=== PATIENT | male | born 1960 | race Caucasian/White ===

== ENCOUNTER 2019-10-14 10:48 | Emergency (ER) | payer OTHER, SELFPAY ==
[2019-10-14] VITALS (8 sets, daily range): BP systolic 153–157; BP diastolic 78–85; PULSE 52–85; RESP 14–24; TEMP 36.1; O2SAT 90–100
[2019-10-14] MEDS: MECLIZINE HCL 12.5 MG TABLET 25 MG PO (11:26)
[2019-10-14] MEDS: SODIUM CHLORIDE 0.9% 1,000 ML 150 ML IV (11:28)
[2019-10-14 11:29] LABS: Add Manual Diff / Slide Review NO; Basophils Absolute Auto 100 /uL (0-100); Basophils Percent Auto 0.9 % (0-2); Eosinophils Absolute Auto 400 /uL (0-450); Eosinophils Percent Auto 4.8 % (2-4); Hematocrit 40.4 % (41-53); Hemoglobin 13.7 g/dL (13.5-17.5); Lymphocytes Absolute Auto 1900 /uL (1100-4500); Lymphocytes Percent Auto 25.1 % (25-40); Mean Corpuscular HGB Conc 34.1 % (30-36); Mean Corpuscular Hemoglobin 29.9 PG (26-34); Mean Corpuscular Volume 87.7 fL (80-100); Monocytes Absolute Auto 400 /uL (0-900); Monocytes Percent Auto 5.1 % (3-14); Neutrophils Absolute Auto 4800 /uL (1500-7000); Neutrophils Percent Auto 64.1 % (50-75); Platelet Count 229 X10^3/uL (150-400); Red Cell Distribution Width 13.5 % (11.6-14.8); White Blood Cell Count 7.5 X10^3/uL (4.5-11.0)
--- NOTE | 2019-10-14 11:39 | DI.CT.S_ITS ---
PROCEDURE: CT ANGIO HEAD AND NECK INDICATIONS: sudden onset of vertigo after neck and upper back adjustment TECHNIQUE: Pre-contrast 4.5 mm thick sections acquired from the foramen magnum to the vertex. After the administration of intravenous contrast, 1 mm thick sections acquired from the aortic arch through the [place]. Post-contrast 4.5 mm thick sections then re-acquired from the foramen magnum to the vertex. 3-dimensional flbhjoi-rhmlvpuja-vbeugkwllh (MIP) and/or volume rendering reformats were acquired of the central intracranial vasculature and neck separately. COMPARISON: None. FINDINGS: Image quality: Excellent. BRAIN: CSF spaces: Ventricles are normal in size and shape. Basal cisterns are patent. No extra-axial fluid collections. Brain: No midline shift. No intracranial bleeds or masses. [place]-white matter interface appears intact. Skull and face: Calvarium and facial bones appear intact, without suspicious lesions. Orbits appear normal. Sinuses: Sinuses and mastoids are clear. HEAD CT ANGIOGRAPHY: Anterior circulation: Intracranial internal carotid arteries are normal in size and flow. The flow within the paired anterior cerebral arteries is normal and symmetric. The flow within the middle cerebral arteries is normal and symmetric. The anterior communicating artery is seen. No aneurysms are seen. Posterior circulation: Visualized portions of the vertebral arteries demonstrate normal caliber, and join to form a normal appearing basilar artery. Flow within the posterior cerebral arteries is normal and symmetric. No aneurysms are seen. NECK CT ANGIOGRAPHY: Carotid system: The great vessels demonstrate a conventional anatomy as they arise from the aortic arch. The origins of the common carotid arteries appear patent. The common carotid arteries demonstrate normal caliber and courses. The bifurcation regions are both widely patent. The internal carotid arteries demonstrate normal calibers and courses. Posterior circulation: The origins of the vertebral arteries both appear widely patent. The more superior extracranial portions of both vertebral arteries also demonstrate normal courses and calibers. They join to form a normal appearing basilar artery. Soft tissues: Visualized neck soft tissues demonstrate no suspicious abnormalities. Bones: No suspicious bony lesions. Visualized cervical spine appears normally aligned. Focal degenerative changes seen at the C5-C6 level, where there are associated posteriorly directed endplate osteophytes, as on series 16, image 70. Moderate to severe loss of disc height is seen at this level. Milder degenerative changes are seen elsewhere. IMPRESSION: No acute intracranial process is seen. No findings of dissection can be seen. No hemodynamically significant stenosis can be seen. Focal C5-C6 degenerative change is seen, with posteriorly directed endplate osteophytes. Any quantitative measurements of stenosis were performed using NASCET criteria. Dictated by: Jeyson Phelps M.D. on 10/14/2019 at 11:34 Approved by: Jeyson Phelps M.D. on 10/14/2019 at 11:38
[2019-10-14 11:47] LABS: Alanine Aminotransferase 15 IU/L (<50); Albumin 4.4 g/dL (3.5-5.0); Albumin Globulin Ratio 1.8 (1.0-2.8); Alkaline Phosphatase 60 U/L (38-126); Aspartate Aminotransferase 28 IU/L (17-59); BUN Creatinine Ratio 19.2 (6-22); Bilirubin Total 1.1 mg/dL (0.2-1.3); Blood Urea Nitrogen 14 mg/dL (9-20); Calcium 9.9 mg/dL (8.4-10.2); Carbon Dioxide 28 mmol/L (22-32); Chloride 105 mmol/L (98-107); Estimated Glomerular Filt Rate > 60.0 mL/min (>60); Globulin 2.5 g/dL (1.7-4.1); Glucose 101 mg/dL (70-100); HEMOLYSIS < 15 (0-50); Potassium 3.8 mmol/L (3.4-5.1); Sodium 138 mmol/L (137-145); Total Protein 6.9 g/dL (6.3-8.2)
[2019-10-14 11:59] LABS: Troponin I < 0.012 ng/mL (0.01-0.034)
--- NOTE | 2019-10-14 12:02 | PC.NURSE ---
Patient reports vertigo symptoms have improved. Able to open eyes and lift head without vomiting.
--- NOTE | 2019-10-14 12:31 | ED_ITS ---
HPI - Dizziness <YA Delarosa - Last Filed: 10/14/19 23:07> General Chief Complaint: Dizziness Stated Complaint: Vertigo Time Seen by Provider: 10/14/19 11:08 Source: patient and EMS Mode of arrival: EMS Limitations: no limitations History of Present Illness HPI Narrative: This is a 58-year-old male, current vapor, who has history of vertigo presents to ED with acute spinning sensation like his riding a roller coaster. Patient reports he woke up this morning with vertigo-like symptoms. He had taken his blood pressure medication and meclizine and felt some improvement. Patient visited his chiropractor at [address] and he was in supine position flat on his back and head his neck and upper back adjusted. When his sats back up, he felt like losing balance. Patient denies speech difficulty, facial droops, weakness to his 1 side of body, dysphagia, headache, or vision change. Patient received Zofran and Phenergan before coming into ED by medics and states nausea has improved bit. Related Data Home Medications Medication Instructions Recorded Confirmed lisinopril mg PO DAILY 10/14/19 Allergies Allergy/AdvReac Type Severity Reaction Status Date / Time No Known Drug Allergies Allergy Verified 10/14/19 11:04 Review of Systems <YA Delarosa - Last Filed: 10/14/19 23:07> Review of Systems Narrative: General: Denies fever, chills, fatigue, malaise, sweats. HEENT: Denies sinus pain, ear pain, sore throat, difficulty swallowing, d izziness. Respiratory: Denies dyspnea, cough, wheezing, hemoptysis, sputum. Cardiovascular: Denies chest pain, palpitations, orthopnea, edema. Gastrointestinal: See HPI : Denies dysuria, frequency, incontinence, hematuria, urinary retention. Musculoskeletal: Denies weakness, joint pain or bony pain. Skin: Denies rash, skin lesions, or other. Neurologic: See HPI Psychiatric: No concerning psychosocial issues. 12-point review of systems is negative except for those stated above. Patient History <YA Delarosa - Last Filed: 10/14/19 23:07> Medical History Hypertension (Acute) Surgical History H/O knee surgery (Acute) Social History Smoking Status: Current every day smoker Smoking Status: Current every day smoker tobacco type: vaping alcohol intake frequency: a few times a month Substance Use Type: marijuana Exam <YA Delarosa - Last Filed: 10/14/19 23:07> Narrative Exam Narrative: GEN: Alert, oriented x 3, well appearing and nourished, and in no acute distress, keeps eyes closed due to dizziness. Head: Normal cephalic, atraumatic. No scalp or temporal tenderness, palpable mass or rash. EYES: Pupils are equal, round, and reactive to light and accommodation. Extraocular muscles are intact bilaterally. There is no subconjunctival hemorrhage, exudate and sclera non-icteric. ENT: Bilateral auditory canals and tympanic membranes clear. Hearing grossly intact. Nose without bleeding, purulent discharge, septal hematoma or deviation. Turbinate without erythema or swelling. Facial sinuses nontender to palpate. Mucous membrane moist, no mucosal lesion. Throat without erythema, tonsillar hypertrophy or exudate. Uvula in midline, airway patent. Neck: Trachea in midline. No JVD, non-tender without lymphadenopathy. No masses or thyroid megaly. Supple, non-tender and no meningeal signs. CARDIAC: Normal regular rate and rhythm without murmurs, gallops, or rubs. No chest wall tenderness. No peripheral edema, cyanosis or pallor. Capillary refi ll is less than 2 seconds. No carotid bruits. RESPIRATORY: Lungs are cleat to auscultate bilaterally. No cough, wheezes, rales, or rhonchi. No stridor, respiratory distress, increase work of breath ing, or accessary muscle used. ABD: Abdomen soft, nontender and non-distended. No guarding or rebound tenderness to palpate. Bowel sounds are normal in all 4 quadrants. There is no palpable masses or organomegaly. EXT: Full painless ROM of all extremities with no loss of sensation, strength, effusion or edema. SKIN: Warm, dry, normal color for patient. No erythema, lesions or rash. BACK: Nontender without deformity or crepitance. No flank tenderness. NEUROLOGICAL: Alert and oriented to place, time and person. No facial droops, dysphasia. CN II-XII intact. Strength and sensation symmetric and intact throughout. Cerebellar testing normal. PSYCHIATRIC: Good judgement and reason, without hallucinations, abnormal affect or abnormal behaviors during the examination. Patient is not suicidal. Initial Vital Signs Initial Vital Signs: Vital Signs Temperature 97 F L 10/14/19 10:58 Pulse Rate 56 L 10/14/19 10:58 Respiratory Rate 15 10/14/19 10:58 Blood Pressure 157/83 H 10/14/19 10:58 Pulse Oximetry 100 10/14/19 10:58 <An Ambrocio DO - Last Filed: 10/15/19 11:16> Initial Vital Signs Initial Vital Signs: Vital Signs Temperature 97 F L 10/14/19 10:58 Pulse Rate 56 L 10/14/19 10:58 Respiratory Rate 15 10/14/19 10:58 Blood Pressure 157/83 H 10/14/19 10:58 Pulse Oximetry 100 10/14/19 10:58 Scores <YA Delarosa - Last Filed: 10/14/19 23:07> GCS [place] coma scale eye opening: Spontaneous [place] coma scale verbal response: Orientated [place] coma scale motor response: Obey commands [place] coma scale total score: 15 NIH Stroke Scale Level of Conciousness: Alert, keenly responsive Ask month/age: Answers both questions correctly. Open/close eyes, close hand: Performs both tasks correctly Best gaze horizontal: Normal Visual deutsch: No visual loss Facial palsy: Normal symetrical movement Left arm drift: No drift for full 10 sec Right arm drift: No drift for full 10 sec Left leg drift: No drift for full 10 sec Right leg drift: No drift for full 10 sec Limb ataxia: Absent Sensory on face/arms/legs: Normal, no sensory loss Best language: No aphasia, normal Dysarthria: Normal Extinction or inattention: No abnormality Total NIH Stroke scale score: 0 Course <YA Delarosa - Last Filed: 10/14/19 23:07> Orders Ordered: Discontinued Medications Sodium Chloride (Normal Saline 0.9%) 1,000 mls @ 150 mls/hr IV CONT DAISHA Last Infusion: 10/14/19 12:57 Dose: 90 mls/hr Documented by: Admin: 10/14/19 11:28 Dose: 150 mls/hr Documented by: ROSALINO Meclizine HCl (Antivert) 25 mg PO NOW ONE Stop: 10/14/19 11:08 Last Admin: 10/14/19 11:26 Dose: 25 mg Documented by: ROSALINO Reevaluation(s) Reevaluation #1: Patient reports improved dizziness/vertigo sensation and nausea upon returning from CT Time: 12:25 Vital Signs Vital signs: Vital Signs - 8 hr 10/14/19 10:58 10/14/19 10:59 10/14/19 11:00 Temperature 97 F L Pulse Rate 56 L 55 L 55 L Respiratory Rate 15 15 24 Blood Pressure 157/83 H 157/83 H Pulse Oximetry 100 100 100 10/14/19 11:30 10/14/19 11:45 10/14/19 11:46 Temperature Pulse Rate 55 L 52 L 64 Respiratory Rate 14 21 18 Blood Pressure 155/85 H 155/85 H Pulse Oximetry 99 99 98 10/14/19 12:16 Temperature Pulse Rate 60 Respiratory Rate 15 Blood Pressure 157/78 H Pulse Oximetry 100 <An Ambrocio, - Last Filed: 10/15/19 11:16> Orders Ordered: Discontinued Medications Sodium Chloride (Normal Saline 0.9%) 1,000 mls @ 150 mls/hr IV CONT DAISHA Last Infusion: 10/14/19 12:57 Dose: 90 mls/hr Documented by: Admin: 10/14/19 11:28 Dose: 150 mls/hr Documented by: ROSALINO Meclizine HCl (Antivert) 25 mg PO NOW ONE Stop: 10/14/19 11:08 Last Admin: 10/14/19 11:26 Dose: 25 mg Documented by: ROSALINO Vital Signs Vital signs: Vital Signs - 8 hr 10/14/19 10:58 10/14/19 10:59 10/14/19 11:00 Temperature 97 F L Pulse Rate 56 L 55 L 55 L Respiratory Rate 15 15 24 Blood Pressure 157/83 H 157/83 H Pulse Oximetry 100 100 100 10/14/19 11:30 10/14/19 11:45 10/14/19 11:46 Temperature Pulse Rate 55 L 52 L 64 Respiratory Rate 14 21 18 Blood Pressure 155/85 H 155/85 H Pulse Oximetry 99 99 98 10/14/19 12:16 Temperature Pulse Rate 60 Respiratory Rate 15 Blood Pressure 157/78 H Pulse Oximetry 100 MDM - Dizziness <Wu YA Gaspar - Last Filed: 10/14/19 23:07> Differential Diagnosis Differential diagnosis: Likely benign paroxysmal positional vertigo, vertebral basilar insufficiency, cerebrovascular accident, transient cerebral ischemia and other (dissection of vertebral artery/carotid artery) Medical Records Attestation: I reviewed the patient's medical records. Lab Data Attestation: I reviewed the patient's lab results. Result diagrams: 10/14/19 11:25 10/14/19 11:25 Labs: Lab Results 10/14/19 10/14/19 Range/Units 11:25 11:25 WBC 7.5 (4.5-11.0) X10^3/uL RBC 4.60 (4.5-5.9) X10^6/uL Hgb 13.7 (13.5-17.5) g/dL Hct 40.4 L (41-53) % MCV 87.7 (80-100) fL MCH 29.9 (26-34) PG MCHC 34.1 (30-36) % RDW 13.5 (11.6-14.8) % Plt Count 229 (150-400) X10^3/uL Neut % (Auto) 64.1 (50-75) % Lymph % (Auto) 25.1 (25-40) % [place] % (Auto) 5.1 (3-14) % Eos % (Auto) 4.8 H (2-4) % Baso % (Auto) 0.9 (0-2) % Neut # (Auto) 4800 (1549-2406) /uL Lymph # (Auto) 1900 (7839-1178) /uL [place] # (Auto) 400 (0-900) /uL Eos # (Auto) 400 (0-450) /uL Baso # (Auto) 100 (0-100) /uL Sodium 138 (137-145) mmol/L Potassium 3.8 (3.4-5.1) mmol/L Chloride 105 (98-107) mmol/L Carbon Dioxide 28 (22-32) mmol/L BUN 14 (9-20) mg/dL Creatinine 0.73 (0.66-1.25) mg/dL Estimated GFR > 60.0 (>60) mL/min BUN/Creatinine Ratio 19.2 (6-22) Glucose 101 H (70-100) mg/dL Calcium 9.9 (8.4-10.2) mg/dL Total Bilirubin 1.1 (0.2-1.3) mg/dL AST 28 (17-59) IU/L ALT 15 (<50) IU/L Alkaline Phosphatase 60 (38-126) U/L Troponin I < 0.012 (0.01-0.034) ng/mL Total Protein 6.9 (6.3-8.2) g/dL Albumin 4.4 (3.5-5.0) g/dL Globulin 2.5 (1.7-4.1) g/dL Albumin/Globulin Ratio 1.8 (1.0-2.8) Imaging Data CTA-Head and neck: Radiologist's Impression: [address] [address] [address] Scan Report Signed Patient: Armando Foster#: [id number] : 2Acct:[id number] Age/Sex: 58 / MDate of Service: 10/14/19 Loc: ED Accession Number: [id number] Procedure: CT angio head and neck Ordering Provider: Wu Gaspar PROCEDURE: CT ANGIO HEAD AND NECK INDICATIONS: sudden onset of vertigo after neck and upper back adjustment TECHNIQUE: Pre-contrast 4.5 mm thick sections acquired from the foramen magnum to the vertex. After the administration of intravenous contrast, 1 mm thick sections acquired from the aortic arch through the [place]. Post-contrast 4.5 mm thick sections then re- acquired from the foramen magnum to the vertex. 3-dimensional m pbywtr-wvlgppeqd-rqnyndfalr (MIP) and/or volume rendering reformats were acquired of the central intracranial vasculature and neck separately. COMPARISON: None. FINDINGS: Image quality: Excellent. BRAIN: CSF spaces: Ventricles are normal in size and shape. Basal cisterns are patent. No extra-axial fluid collections. Brain: No midline shift. No intracranial bleeds or masses. [place]-white matter interface appears intact. Skull and face: Calvarium and facial bones appear intact, without suspicious lesions. Orbits appear normal. Sinuses: Sinuses and mastoids are clear. HEAD CT ANGIOGRAPHY: Anterior circulation: Intracranial internal carotid arteries are normal in size and flow. The flow within the paired anterior cerebral arteries is normal and symmetric. The flow within the middle cerebral arteries is normal and symmetric. The anterior communicating artery is seen. No aneurysms are seen. Posterior circulation: Visualized portions of the vertebral arteries demonstrate normal caliber, and join to form a normal appearing basilar artery. Flow within the posterior cerebral arteries is normal and symmetric. No aneurysms are seen. NECK CT ANGIOGRAPHY: Carotid system: The great vessels demonstrate a conventional anatomy as they arise from the aortic arch. The origins of the common carotid arteries appear patent. The common carotid arteries demonstrate normal caliber and courses. The bifurcation regions are both widely patent. The internal carotid arteries demonstrate normal calibers and courses. Posterior circulation: The origins of the vertebral arteries both appear widely patent. The more superior extracranial portions of both vertebral arteries also demonstrate normal courses and calibers. They join to form a normal appearing basilar artery. Soft tissues: Visualized neck soft tissues demonstrate no suspicious abnorm alities. Bones: No suspicious bony lesions. Visualized cervical spine appears normally aligned. Focal degenerative changes seen at the C5-C6 level, where there are associated posteriorly directed endplate osteophytes, as on series 16, image 70. Moderate to severe loss of disc height is seen at this level. Milder degenerative changes are seen elsewhere. IMPRESSION: No acute intracranial process is seen. No findings of dissection can be seen. No hemodynamically significant stenosis can be seen. Focal C5-C6 degenerative change is seen, with posteriorly directed endplate o steophytes. Any quantitative measurements of stenosis were performed using NASCET criteria. Dictated by: Jeyson Phepls M.D. on 10/14/2019 at 11:34 Approved by: Jeyson Phelps M.D. on 10/14/2019 at 11:38 ECG Data Attestation: I personally reviewed and interpreted this ECG as follows: Prior ECG tracings: not available for review Interpretation: Sinus bradycardia rate at 56 with premature supraventricular complexes. Normal [place]. IA interval 136, QRS duration 92, QT/QTC 458/441. No acute ST changes MDM Narrative Medical decision making narrative: This is a 58 year male to ED with sudden onset of worsening vertigo after he had his neck and upper back adjusted at chiropractor this morning after he was woken up with his usual vertigo symptoms. Patient described as he fell spinning sensation as he was riding a roller coaster with nausea and vomiting without other obvious neurological deficit. Fast exam was negative. Patient received IV Zofran, Phenergan, gentle IV hydration infusion with meclizine. Given the patient just had his neck and upper back manipulated, had CTA of neck and head to rule out carotid and vertebral artery dissection. The result was negative for acute intracranial process or dissections. There was no significant stenosis seen. There is focal C5 and C6 degenerative changes with posteriorly directed endplate osteophytes. CBC, CMP and cardiac enzymes were unremarkable. Patient reports his symptoms much improved after the medications treatment and he was able to ambulate in stable gait to bathroom and back to his bed. Findings were discussed with patient and informed his symptoms are likely due to vertigo. Patient advised to follow up with PCP and return precautions were discussed with patient and patient verbalized understanding and agreement with treatment plan. <An Ambrocio, DO - Last Filed: 10/15/19 11:16> Lab Data Labs: Lab Results 10/14/19 10/14/19 Range/Units 11:25 11:25 WBC 7.5 (4.5-11.0) X10^3/uL RBC 4.60 (4.5-5.9) X10^6/uL Hgb 13.7 (13.5-17.5) g/dL Hct 40.4 L (41-53) % MCV 87.7 (80-100) fL MCH 29.9 (26-34) PG MCHC 34.1 (30-36) % RDW 13.5 (11.6-14.8) % Plt Count 229 (150-400) X10^3/uL Neut % (Auto) 64.1 (50-75) % Lymph % (Auto) 25.1 (25-40) % [place] % (Auto) 5.1 (3-14) % Eos % (Auto) 4.8 H (2-4) % Baso % (Auto) 0.9 (0-2) % Neut # (Auto) 4800 (4669-8867) /uL Lymph # (Auto) 1900 (4201-9161) /uL [place] # (Auto) 400 (0-900) /uL Eos # (Auto) 400 (0-450) /uL Baso # (Auto) 100 (0-100) /uL Sodium 138 (137-145) mmol/L Potassium 3.8 (3.4-5.1) mmol/L Chloride 105 (98-107) mmol/L Carbon Dioxide 28 (22-32) mmol/L BUN 14 (9-20) mg/dL Creatinine 0.73 (0.66-1.25) mg/dL Estimated GFR > 60.0 (>60) mL/min BUN/Creatinine Ratio 19.2 (6-22) Glucose 101 H (70-100) mg/dL Calcium 9.9 (8.4-10.2) mg/dL Total Bilirubin 1.1 (0.2-1.3) mg/dL AST 28 (17-59) IU/L ALT 15 (<50) IU/L Alkaline Phosphatase 60 (38-126) U/L Troponin I < 0.012 (0.01-0.034) ng/mL Total Protein 6.9 (6.3-8.2) g/dL Albumin 4.4 (3.5-5.0) g/dL Globulin 2.5 (1.7-4.1) g/dL Albumin/Globulin Ratio 1.8 (1.0-2.8) Discharge Plan Departure Patient Disposition: Home Clinical Impression: Vertigo Discharge Date/Time: 10/14/19 13:10 Instructions: DI for Vertigo Activity Restrictions/Additional Instructions: You have been diagnosed with [vertigo. Lab test, EKG and CT a of your neck and head were unremarkable. Your symptoms improved while in ED with the medications.]. What to do: *Take your medications as directed. *Follow up with your primary care provider in 2-3 days, call for an appointment. Let them know you were seen in the ED and that we asked you to be seen in follow up. *Return to ED if you have any new, worsening, or concerning symptoms, such as [chest pain, breathing difficulty, unable to tolerate fluids, facial droops, speech difficulty, weakness to 1 side of body, vision change, severe headache or any acute concerns]. Prescriptions: No Action lisinopril 20 mg Tablet PO DAILY RF: 0 Referrals: [facility] [Outside] <An Ambrocio DO - Last Filed: 10/15/19 11:16> Cosign ED Attending Anneature Attestation: I was immediately available in the department for consultation. Documentation has been reviewed. I agree with assessment and plan.
== END 2019-10-14 13:10 | disposition home or self-care (01) ==
PROVIDERS: Emergency Medicine; Emergency Provider Nurse Practitioner Family
DX: R42 Dizziness and giddiness (principal); I10 Essential (primary) hypertension; R11.0 Nausea
CPT/HCPCS: 36415; 70496; 70498; 80053; 84484; 85025; 93005; 96360; 99284; Q9967

== ENCOUNTER → 2020-05-23 09:03 | Outpatient (CLI) | payer OTHER, SELFPAY ==
[2020-05-23 11:34] LABS: COVID19 -Nasal RAPID Negative (Negative)
== END ==
PROVIDERS: PCP Family Medicine; Visit Provider Nurse Practitioner
DX: Z20.822 Contact with and (suspected) exposure to COVID-19 (principal)
CPT/HCPCS: 87635

== ENCOUNTER 2020-05-25 09:36 | Inpatient (IN) | payer OTHER, SELFPAY ==
[2020-05-12 09:56] VITALS: BMI 28.0
[2020-05-25] VITALS (16 sets, daily range): BP systolic 127–170; BP diastolic 65–109; PULSE 69–91; RESP 9–97; TEMP 36.3–37.3; O2SAT 9–98; BMI 28.0
--- NOTE | 2020-05-25 | DI.RAD.S_ITS ---
PROCEDURE: XR CERVICAL SPINE 2V OR 3V INDICATIONS: C5-6-7 ACDF TECHNIQUE: 2 view(s) of the cervical spine were acquired. COMPARISON: None. FINDINGS: Intraoperative fluoroscopic images of cervical spine shows anterior fusion at C5 through C7 levels with intervertebral spacer placement. IMPRESSION: Fluoro guidance was provided intraoperatively for anterior fusion at C5 through C7 levels. Dictated by: Eh Allne M.D. on 05/25/2020 at 16:57 Approved by: Eh Allen M.D. on 05/25/2020 at 16:58
[2020-05-25] MEDS: LACTATED RINGERS 1,000 ML 42 ML IV ×2 (10:16→13:30)
--- NOTE | 2020-05-25 10:54 | PM.PREOP ---
Pre-operative Note COVID-19 COVID-19 status: Negative Result date/Date tested (Pos, Neg/Pending): 05/23/20 Interval Note History & Physical reviewed/Exam performed by Physician: Yes Changes to H&P: No
[2020-05-25] MEDS: CEFAZOLIN 2 GM/100 ML FROZ.PIGGY IV ×2 (11:23→19:40)
--- NOTE | 2020-05-25 12:03 | SUR.OPER ---
Supine, head on gel donut. Arms padded with gel pads, tucked at sides, towel roll under shoulders. Safety belt at thigh. Legs uncrossed.
--- NOTE | 2020-05-25 13:39 | PM.OP.1 ---
Operative Date/Time/Diagnoses Date of procedure: 05/25/20 Time of procedure: 11:39 Pre-op diagnosis: 1. C5-6, C6-7 spinal stenosis 2. C5-6, C6-7 spondylosis with radiculopathy Post-op diagnosis: same Procedure & Clinicians Procedure: 1. C5-6 C6-7 anterior cervical diskectomy and fusion 2. C5-6 C6-7 anterior interbody cage placement 3. C5-6 C6-7 anterior instrumentation with plate and screw placement in C5-C6 and C7 vertebrae 4. Utilization of microsurgical technique and operating microscope Same procedure as scheduled: Yes Indications: Patient has been having chronic neck pain and worsening cervical radiculopathy. Patient failed multiple conservative management with worsening pain weakness and numbness in her upper extremity. Patient has been having difficulty performing activity of daily living. After discussing risks benefits of treatment options, patient elected proceed with surgery. Surgeon: Denton Hernandez Ditch Tender: Adenike Hobson'Brien Click Yes if Unassisted: No Anesthesia Type: General Operative Notes Closure Type: primary Specimen(s): none sent Prosthetic devices, grafts, tissues, transplants, or devices: Globus Extend plate, PEEK cages Estimated Blood Loss (mL): 10 Blood products transfused: none Procedure in detail: Patient was seen in the preoperative area. Risks and benefits of the surgery was discussed with the patient. Operative consent was obtained and placed in the chart. Patient was then taken to the operative room. Prophylactic antibiotic was given less than 0.5 hr prior to skin incision. General anesthesia was administered. Patient was placed into a supine position on her radiolucent table. Bilateral shoulders were taped down to allow proper C-arm imaging. Anterior cervical area was prepped and draped in a sterile fashion. Time-out was performed at this time. Using lateral C-arm imaging, the level between C5 and C7 was identified and marked on patient's neck. A oblique incision from midline towards medial border of sternocleidomastoid muscle was made. The platysma muscle was incised in line with skin incision. Metzenbaum scissor was used to develop the plane between the medial border of sternocleidomastoid d and the strap muscles medially. The carotid sheath and its contents were identified and protected behind the hand-held retractor during the entire case. The plane between the carotid sheath and strap muscles was developed with Metzenbaum scissors. Dissection was made down to the level of the anterior cervical fascia. Longus colli muscle was incised on the anterior aspect of vertebral bodies bilaterally from C5-C7. Spinal needle was placed into the C5-6 disc space and confirmed with lateral C-arm imaging. Using microsurgical technique and operative microscope, anterior cervical diskectomy was performed at C5-6 and C6-7 level. This was done by removing the disc material, removing the anterior and posterior osteophytes posterior longitudinal ligaments along with performing bilateral foraminotomies at both levels. Patient was found to have severe central and foraminal stenosis at both levels. Patient's stenosis was fully decompressed after decompression was completed. After the diskectomy was completed, 2 anterior interbody cages were obtained. The cages were packed with DBM bone grafting material. One cage each along with the bone grafting material was then packed into the interbody spaces from C5-C7 with one cage into each interbody level. After the cages were placed, the anterior cervical plate was stabilized to the C5-C7 vertebrae using 2 screws at each each level. Total 6 screws were placed. After confirming placement of the hardware with AP and lateral C-arm imaging, the screws were locked into the plate using the locking mechanism and torque limiting screwdriver. After the hardware was placed and confirmed with AP and lateral C-arm imaging, the wound was irrigated with sterile normal saline. The platysma muscle and the subcutaneous tissue was closed with 2-0 Vicryl. The skin was closed with 4-0 Monocryl and Steri-Strips. Patient tolerated the procedure well. Patient was transferred recovery room in stable condition. There were no complications. Complications: none Post-operative Condition: stable Disposition: PACU Plan for aftercare: Admit to inpatient hospital
[2020-05-25] MEDS: hydrOXYzine 50 MG/ML INJ 25 MG IM (14:57)
[2020-05-25] MEDS: OXYCODONE IR 5 MG TABLET PO (15:15)
[2020-05-25] MEDS: ACETAMINOPHEN 325 MG TABLET 650 MG PO (15:15)
[2020-05-25] MEDS: SODIUM CHLORIDE 0.9% 1,000 ML 100 ML IV (16:37)
[2020-05-25] MEDS: SENNOSIDES 8.6 MG TABLET 17.2 MG PO (21:04)
[2020-05-25] MEDS: DOCUSATE 100 MG CAPSULE PO (21:04)
[2020-05-25] MEDS: hydrOXYzine pamoate 25 MG CAPSULE PO (21:09)
[2020-05-25] MEDS: OXYCODONE IR 5 MG TABLET 10 MG PO (21:09)
[2020-05-26] MEDS: OXYCODONE IR 5 MG TABLET 10 MG PO ×3 (00:10→11:52)
--- NOTE | 2020-05-26 01:44 | PC.NURSE ---
2351: alert and oriented. Breath sounds CTA with RA sat of 96%. HRR. BP elevated at 141/96. Denies nausea. BT present and states he is passing flatus. Denies dysuria, frequency or urgency with urination. Moving self in bed and SBA when up to bathroom. Dressing to neck is CDI. Soft collar removed at shift change per patient. Complained of 7/10 neck pain and was medicated with oxycodone and is currently asleep. Has ice to posterior neck. Has sore throat so hurts to swallow but denies difficulty swallowing. Wearing bilateral foot SCD's. Fall risk score is low.
[2020-05-26] MEDS: CEFAZOLIN 2 GM/100 ML FROZ.PIGGY IV (02:26)
[2020-05-26] MEDS: SODIUM CHLORIDE 0.9% 1,000 ML 100 ML IV (02:26)
[2020-05-26 06:00] VITALS: BP 136/75; PULSE 78; RESP 18; TEMP 36.9; O2SAT 98
[2020-05-26 08:27] VITALS: BP 149/93; PULSE 83; RESP 18; TEMP 36.4; O2SAT 97
[2020-05-26] MEDS: DOCUSATE 100 MG CAPSULE PO (08:44)
[2020-05-26] MEDS: lisinopriL 20 MG TABLET 40 MG PO (08:44)
[2020-05-26] MEDS: hydroCHLOROthiazide 25 MG TABLET PO (08:44)
--- NOTE | 2020-05-26 09:10 | PT.IIE ---
Current Diagnoses Other spondylosis with radiculopathy, cervical region (05/25/20) Spinal stenosis, cervical region (05/25/20) Surgery Performed Operation Date: 05/25/20 11:15 Actual Procedures p C5-6, C6-7 ACDF with anterior instrumentation - Denton Hernandez MD Surgical History (Last Updated 05/12/20 @ 10:04 by Sara Gómez, RN) H/O knee surgery Status post LASIK surgery of both eyes Medical History (Last Updated 05/12/20 @ 10:00 by Sara Gómez, RN) Hypertension Vertigo Physical Therapy Inpatient Evaluation/Re-Eval M1 PT/OT-IP Prior Functional Status Start: 05/26/20 10:44 Freq: NEEDED Status: Active Protocol: Document 05/26/20 09:10 AB (Rec: 05/26/20 10:55 AB [email or web address]) Medical Review Prior Functional Status Medical History Reviewed Yes Communication able to make needs known Mobility and Gait pt stated that he is independent with all mobilities and ambulation wtihout AD Social History Household Members none Living Arrangements Mobile home Number of Floors (Floors) One Floor Number of Stairs To Enter/Railing? 3 steps L rail to enter Home Environment Standard Height Toilet Home Equipment Hand Held Shower Employment Status Retired Additional Social History Comment stated that his friend will stay with him for 1-2 days to assist him M2 PT-IP Current Condition Start: 05/26/20 10:44 Freq: NEEDED Status: Active Protocol: Document 05/26/20 09:10 AB (Rec: 05/26/20 10:55 AB [email or web address]) Physical Therapy Current Condition Current Condition Evaluation Date 05/26/20 Treatment Diagnosis s/p C5-6, C6-7 ACDF; difficulty in walking Onset Date 05/25/20 Precautions Cervical Spine Precautions Soft Collar for Comfort,No Heavy Lifting,Log Roll M3 PT-IP Subjective Start: 05/26/20 10:44 Freq: NEEDED Status: Active Protocol: Document 05/26/20 09:10 AB (Rec: 05/26/20 10:55 AB [email or web address]) Subjective Physical Therapy Visit Type Type Initial Evaluation Visit Start Time 09:10 Visit Stop Time 09:32 Total Visit Minutes 22 Number of BARREL HEADER Visits 0 Physical Therapy Visit Comments Patient Comments agreeable to do PT Therapy Pain Assessment Pain When Pain Assessed At Rest Pain Present Pain Present Pain Reported Location Neck Scale Used pain scale not stated Pain Management Techniques Timing of Activity with Medications M4 PT-IP Mobility and Gait Start: 05/26/20 10:44 Freq: NEEDED Status: Active Protocol: Document 05/26/20 09:10 AB (Rec: 05/26/20 10:55 AB [id number]) PT-Bed Mobility Assessment Rolling Type of Rolling Log Rolling Level of Assist Standby Assistance Supine to Sit Supine to Sit Standby Assistance Sit to Supine Sit to Supine Standby Assistance PT-Transfer Assessment Sit to and From Stand Sit to and from Stand Standby Assistance,Use of Upper Extremities Equipment Transfer Assistive Device None Orthotic/Prosthetic Devices or Brace: Yes Transfers Transfer Destination Toilet Transfer Technique ambulated without AD Transfer Ability Level of Assist Standby Assistance Comments Mobility Comments reviewed cervical precautions and log roll bed mobility. pt stated that he has to use the toilet first and completed supine to sit HOB elevated SBA . ambulated to the toilet without AD SBA and was able to ambulate to sink and back to bed without AD SBA. educated pt on cervical precautions and log roll bed mobility. completed log roll supine <> sit x 4 reps requiring SBA and initial cues but able to complete without cues after 2 reps. pt ambulated in the hallway without AD SBA. completed up/ down 3 steps using L rail SBA. pt ambulated back to bed. requested to go back to bed and completed sit to supine SBA. positioned in bed. call light and table placed within reach. Gait Assessment Gait Gait Assistance Required: Standby Assistance Distance (Feet) 150 Assistive Devices Assistive Device None Orthotic/Prosthetic Devices or Brace: Yes Factors Limiting Gait Function Factors Limiting Gait Function Limited Range of Motion,Pain, Poor Balance Comments Gait Comments pls refer to mobility section for details Stair Climbing Assessment Evaluation Level of Assist On Stairs Standby Assistance Devices Stair Climbing Assistive Devices Left Railing Technique/Endurance Stair Climbing Direction Ascend and Descend Stair Climbing Technique Step to Step Number of Steps Climbed 3 Query Text: Stair Climbing Set # Repetitions (reps) 1 PT-Balance Assessment Sitting Balance and Reactions Static Sitting Balance Ability Normal Dynamic Sitting Balance Ability Normal Standing Balance and Reactions Static Standing Balance Ability Good Dynamic Standing Balance Ability Good Device Used without AD M5 PT-IP Objective Assessments Start: 05/26/20 10:44 Freq: NEEDED Status: Active Protocol: Document 05/26/20 09:10 AB (Rec: 05/26/20 10:55 AB [id number]) Orientation Orientation/Cognition Level of Alertness Alert Orientation Name,Age,Birthday,Month,Date, Year,Day of Week,Place, Situation Language Function Ability No Deficits Noted Safety Awareness Understands Safety Issues Memory Description No Deficits Noted Gross Range of Motion Lower Extremity ROM Assessment Within Functional Limits Strength Lower Extremity Strength Assessment Within Functional Limits Coordination Assessment Gross Coordination Gross Coordination WNL Sensation Assessment Sensation Gross Sensation WNL Muscle Tone Muscle Tone WNL Yes M6 PT-IP Treatment Start: 05/26/20 10:44 Freq: NEEDED Status: Active Protocol: Document 05/26/20 09:10 AB (Rec: 05/26/20 10:55 AB [id number]) Physical Therapy Treatment Education Education Provided Precautions,Weight Bearing Status,Post-Op Packet,Safety Brace Education Donning,Bear Dance,Patient Other Treatments Other Treatment Performed educated on soft collar management and pt was able to complete without assistance M7 PT-IP Assessment and Plan Start: 05/26/20 10:44 Freq: NEEDED Status: Active Protocol: Document 05/26/20 09:10 AB (Rec: 05/26/20 10:55 AB [id number]) PT Summary Assessment and Plan Potential Rehabilitation Potential Good Status of Condition at Evaluation Stable Summary Impairments Pain,ROM,Strength,Balance,Bed Mobility,Transfers,Gait, Activity Tolerance Assessment Summary pt requiring SBA with mobility and able to ambulate without AD. pt plans to go home and a friend will assist him for 1- 2 days. pt may go home when medically stable. Goals Bed Mobility Goal Independent Transfer Goal Independent Gait Goal Independent Gait Distance 300 Other Goals upd/won 3 steps L rail independent Days to Meet Goals 3 Frequency of Treatment Frequency Of Treatment Twice a Day Treatment Plan Physical Therapy Treatment Plan Bed Mobility Training,Transfer Training,Gait Training, Therapeutic Exercise,Balance Retraining,Post Op Education, Discharge Planning,Hot or Cold Pack,Neuromuscular Re-ed, Coordination Retraining,Manual Therapy Precautions Cervical Spine Precautions Soft Collar for Comfort,No Heavy Lifting,Log Roll Recommendations To Nursing Amount of Assist Needed Standby Assistance Discharge Recommendations PT Discharge Recommendations Home with Assistance Transportation Needs at Discharge Private Vehicle
--- NOTE | 2020-05-26 10:08 | OT.IP.EVAL ---
Current Diagnoses Other spondylosis with radiculopathy, cervical region (05/25/20) Spinal stenosis, cervical region (05/25/20) Surgery Performed Operation Date: 05/25/20 11:15 Actual Procedures p C5-6, C6-7 ACDF with anterior instrumentation - Denton Hernandez MD Past Medical History (Last Updated 05/12/20 @ 10:00 by Sara Gómez, RN) Hypertension Vertigo Surgical History (Last Updated 05/12/20 @ 10:04 by Sara Gómez, RN) H/O knee surgery Status post LASIK surgery of both eyes Occupational Therapy Inpatient Evaluation/Re-Eval M1 PT/OT-IP Prior Functional Status Start: 05/26/20 11:55 Freq: NEEDED Status: Active Protocol: Document 05/26/20 11:56 [facility] (Rec: 05/26/20 12:06 [facility] [id number]) Medical Review Prior Functional Status Medical History Reviewed Yes Communication able to make needs known Mobility and Gait pt stated that he is independent with all mobilities and ambulation without AD Activities of Daily Living and IADL's Pt states able to do all ADL, IADL, and drive. Social History Household Members none Living Arrangements Mobile home Number of Stairs To Enter/Railing? Pt has 3 steps- 2 platform steps and then step to get into the house with no railing . Home Environment Standard Height Toilet,Tub/ Shower Home Equipment Hand Held Shower Additional Social History Comment Pt has a friend that can assist him, and maybe able to stay with him as needed. M2 OT-IP Current Condition Start: 05/26/20 12:08 Freq: Status: Active Protocol: Document 05/26/20 11:56 [facility] (Rec: 05/26/20 12:06 [facility] [id number]) Occupational Therapy Current Condition Current Condition Evaluation Date 05/26/20 Treatment Diagnosis S/P C5-6, C6-7 anterior cervical diskectomy and fusion Diagnosis Onset Date 05/25/20 Post Operative Precautions Cervical Spine Precautions Soft Collar for Comfort,No Heavy Lifting,Log Roll M3 OT- IP Subjective and Pain Start: 05/26/20 12:08 Freq: Status: Active Protocol: Document 05/26/20 11:56 [facility] (Rec: 05/26/20 12:06 [facility] [id number]) OT- Subjective Occupational Therapy Visit Type Type Initial Evaluation Visit Start Time 09:54 Visit Stop Time 10:08 Total Visit Minutes 14 Occupational Therapy Visit Comments Patient Comments Pt agreed to do OT eval. Patient/Caregiver Goals TO go home. OT Pain Assessment Pain When Pain Assessed At Rest Pain Present Pain Present Denied Pain M4 OT- IP ADL's Start: 05/26/20 12:08 Freq: Status: Active Protocol: Document 05/26/20 11:56 [facility] (Rec: 05/26/20 12:06 [facility] [id number]) OT [facility] General Evaluation Self-Feeding Ability Independent OT ADL-Grooming General Evaluation Grooming Ability Independent Comments OT Grooming Comments Pt aware to just have use of cup and spit back into the cup if needed. OT ADL-Dressing General Eval Upper Body Dressing Ability Independent, able to basil/doff soft collar on his own. Lower Body Dressing Ability Standby Assistance Comments OT Dressing Comments Pt able to sit for LB dressing needs. Able to educate pt to be mindful of his head/neck positioning needs during dressing needs. Long handle shoe horn issued. OT ADL-Toileting Comments OT Toileting Comments Pt able to reach appropriately to be able to wipe and follow cervical precautions. OT ADL-Bathing Comments OT Bathing Comments Pt states to shower at home. M5 OT- IP IADL's Start: 05/26/20 12:08 Freq: Status: Active Protocol: Document 05/26/20 11:56 [facility] (Rec: 05/26/20 12:06 [facility] [id number]) OT-Instrumental Activities of Daily Living Home Safety Awareness Awareness of Need for Assistance at Home Good Awareness Ability to Problem Solve Emergency Able to Problem Solve Situations Medication Management Medication Management No Deficits Identified Money Management Money Management No Deficits Identified Meal Preparation Meal Preparation No Deficits Identified Sample Examiner Sample Examiner Comments Pt has a friend who will assist. M6 OT- IP Functional Cognition Start: 05/26/20 12:08 Freq: Status: Active Protocol: Document 05/26/20 11:56 [facility] (Rec: 05/26/20 12:06 [facility] [id number]) Cognitive Factors Limiting Selfcare Function Cognitive Ability Level of Alertness Alert Patient Orientation Name,Age,Birthday,Month,Date, Year,Day of Week,Place, Situation Ability to Follow Commands Able to Follow Multi-Step Commands Memory Description No Deficits Noted Safety Awareness No Deficits Noted Problem Solving Ability No deficits Noted Cognitive Comments Cognitive Assessment Comments NO cognitive deficits noted. OT- Vision and Hearing OT- Hearing Assessment OT- Hearing Assessment WFL OT- Vision Assessment Visual Attentiveness WFL M7 OT- IP Mobility and Balance Start: 05/26/20 12:08 Freq: Status: Active Protocol: Document 05/26/20 11:56 [facility] (Rec: 05/26/20 12:06 [facility] [id number]) OT- Bed Mobility Assessment Rolling Level of Assistance Independent Supine to Sit Supine to Sit Assist Independent Sit to Supine Sit to Supine Assist Independent Scooting Scooting to Edge of Bed Independent OT-Transfer Assessment Sit to and From Stand Sit to and from Stand Independent Transfers Transfer Ability Standby Assistance Technique Transfer Destination Bed,Chair Devices Transfer Assistive Devices None Comments Mobility Comments Distant SBA for transfer for level surfaces. OT- Balance Assessment Sitting Balance and Reactions Static Sitting Balance Ability Normal Dynamic Sitting Balance Ability Normal Standing Balance and Reactions Static Standing Balance Ability Normal M8 OT- IP Objective Assessments Start: 05/26/20 12:08 Freq: Status: Active Protocol: Document 05/26/20 11:56 [facility] (Rec: 05/26/20 12:06 [facility] [id number]) OT Gross Range of Motion Upper Extremity Range of Motion Assessment Within Functional Limits OT Strength Upper Extremity Strength Assessment Left Impaired OT-Muscle Tone Assessment Muscle Tone WNL Yes M9 OT- IP Assessment and Plan Start: 05/26/20 12:08 Freq: Status: Active Protocol: Document 05/26/20 11:56 [facility] (Rec: 05/26/20 12:06 [facility] [id number]) OT Summary Assessment and Plan Potential Rehabilitation Potential Excellent Analytic Complexity at Evaluation Low Summary OT Impairments Strength Progress Towards Goals Progressing Toward Goals Assessment Summary Pt low complexity and main barrier is decreased strength with LUE and needing to take his time and be careful not to move his head excessively. Pt has a friend to assist him as needed. Suggested friend to be there for shower and may possible need a shower chair. Goals Dressing Goal Independent Toileting Goal Independent Bathing Goal Independent Shower Transfer Goal Independent Days to Meet Goals 1 Frequency of Treatment Frequency Of Treatment Once a Day Treatment Plan OT Treatment Plan ADL Training,Patient/Family Education Other Treatment Recommendations and Next shower if still here Treatment Focus Discharge Recommendations OT Discharge Recommendations Home with Assistance Home Equipment Needs long handle shoe horn issued, shower chair Transportation Needs at Discharge Private Vehicle
--- NOTE | 2020-05-26 10:08 | OT.IP.EVAL ---
Current Diagnoses Other spondylosis with radiculopathy, cervical region (05/25/20) Spinal stenosis, cervical region (05/25/20) Surgery Performed Operation Date: 05/25/20 11:15 Actual Procedures p C5-6, C6-7 ACDF with anterior instrumentation - Denton Hernandez MD Past Medical History (Last Updated 05/12/20 @ 10:00 by Saar Gómez, RN) Hypertension Vertigo Surgical History (Last Updated 05/12/20 @ 10:04 by Sara Gómez, RN) H/O knee surgery Status post LASIK surgery of both eyes Occupational Therapy Inpatient Evaluation/Re-Eval M1 PT/OT-IP Prior Functional Status Start: 05/26/20 11:55 Freq: NEEDED Status: Active Protocol: Document 05/26/20 11:56 [facility] (Rec: 05/26/20 12:06 [facility] [id number]) Medical Review Prior Functional Status Medical History Reviewed Yes Communication able to make needs known Mobility and Gait pt stated that he is independent with all mobilities and ambulation without AD Activities of Daily Living and IADL's Pt states able to do all ADL, IADL, and drive. Social History Household Members none Living Arrangements Mobile home Number of Stairs To Enter/Railing? Pt has 3 steps- 2 platform steps and then step to get into the house with no railing . Home Environment Standard Height Toilet,Tub/ Shower Home Equipment Hand Held Shower Additional Social History Comment Pt has a friend that can assist him, and maybe able to stay with him as needed. M2 OT-IP Current Condition Start: 05/26/20 12:08 Freq: Status: Active Protocol: Document 05/26/20 11:56 [facility] (Rec: 05/26/20 12:06 [facility] [id number]) Occupational Therapy Current Condition Current Condition Evaluation Date 05/26/20 Treatment Diagnosis S/P C5-6, C6-7 anterior cervical diskectomy and fusion Diagnosis Onset Date 05/25/20 Post Operative Precautions Cervical Spine Precautions Soft Collar for Comfort,No Heavy Lifting,Log Roll M3 OT- IP Subjective and Pain Start: 05/26/20 12:08 Freq: Status: Active Protocol: Document 05/26/20 11:56 [facility] (Rec: 05/26/20 12:06 [facility] [id number]) OT- Subjective Occupational Therapy Visit Type Type Initial Evaluation Visit Start Time 09:54 Visit Stop Time 10:08 Total Visit Minutes 14 Occupational Therapy Visit Comments Patient Comments Pt agreed to do OT eval. Patient/Caregiver Goals TO go home. OT Pain Assessment Pain When Pain Assessed At Rest Pain Present Pain Present Denied Pain M4 OT- IP ADL's Start: 05/26/20 12:08 Freq: Status: Active Protocol: Document 05/26/20 11:56 [facility] (Rec: 05/26/20 12:06 [facility] [id number]) OT UQU-Dupz-Zueldhm General Evaluation Self-Feeding Ability Independent OT ADL-Grooming General Evaluation Grooming Ability Independent Comments OT Grooming Comments Pt aware to just have use of cup and spit back into the cup if needed. OT ADL-Dressing General Eval Upper Body Dressing Ability Independent, able to basil/doff soft collar on his own. Lower Body Dressing Ability Standby Assistance Comments OT Dressing Comments Pt able to sit for LB dressing needs. Able to educate pt to be mindful of his head/neck positioning needs during dressing needs. OT ADL-Toileting Comments OT Toileting Comments Pt able to reach appropriately to be able to wipe and follow cervical precautions. OT ADL-Bathing Comments OT Bathing Comments Pt states to shower at home. M5 OT- IP IADL's Start: 05/26/20 12:08 Freq: Status: Active Protocol: Document 05/26/20 11:56 [facility] (Rec: 05/26/20 12:06 [facility] [id number]) OT-Instrumental Activities of Daily Living Home Safety Awareness Awareness of Need for Assistance at Home Good Awareness Ability to Problem Solve Emergency Able to Problem Solve Situations Medication Management Medication Management No Deficits Identified Money Management Money Management No Deficits Identified Meal Preparation Meal Preparation No Deficits Identified Metal Furniture Polisher Metal Furniture Polisher Comments Pt has a friend who will assist. M6 OT- IP Functional Cognition Start: 05/26/20 12:08 Freq: Status: Active Protocol: Document 05/26/20 11:56 [facility] (Rec: 05/26/20 12:06 [facility] [id number]) Cognitive Factors Limiting Selfcare Function Cognitive Ability Level of Alertness Alert Patient Orientation Name,Age,Birthday,Month,Date, Year,Day of Week,Place, Situation Ability to Follow Commands Able to Follow Multi-Step Commands Memory Description No Deficits Noted Safety Awareness No Deficits Noted Problem Solving Ability No deficits Noted Cognitive Comments Cognitive Assessment Comments NO cognitive deficits noted. OT- Vision and Hearing OT- Hearing Assessment OT- Hearing Assessment WFL OT- Vision Assessment Visual Attentiveness WFL M7 OT- IP Mobility and Balance Start: 05/26/20 12:08 Freq: Status: Active Protocol: Document 05/26/20 11:56 [facility] (Rec: 05/26/20 12:06 [facility] [id number]) OT- Bed Mobility Assessment Rolling Level of Assistance Independent Supine to Sit Supine to Sit Assist Independent Sit to Supine Sit to Supine Assist Independent Scooting Scooting to Edge of Bed Independent OT-Transfer Assessment Sit to and From Stand Sit to and from Stand Independent Transfers Transfer Ability Standby Assistance Technique Transfer Destination Bed,Chair Devices Transfer Assistive Devices None Comments Mobility Comments Distant SBA for transfer for level surfaces. OT- Balance Assessment Sitting Balance and Reactions Static Sitting Balance Ability Normal Dynamic Sitting Balance Ability Normal Standing Balance and Reactions Static Standing Balance Ability Normal M8 OT- IP Objective Assessments Start: 05/26/20 12:08 Freq: Status: Active Protocol: Document 05/26/20 11:56 [facility] (Rec: 05/26/20 12:06 [facility] [id number]) OT Gross Range of Motion Upper Extremity Range of Motion Assessment Within Functional Limits OT Strength Upper Extremity Strength Assessment Left Impaired OT-Muscle Tone Assessment Muscle Tone WNL Yes M9 OT- IP Assessment and Plan Start: 05/26/20 12:08 Freq: Status: Active Protocol: Document 05/26/20 11:56 [facility] (Rec: 05/26/20 12:06 [facility] [id number]) OT Summary Assessment and Plan Potential Rehabilitation Potential Excellent Analytic Complexity at Evaluation Low Summary OT Impairments Strength Progress Towards Goals Progressing Toward Goals Assessment Summary Pt low complexity and main barrier is decreased strength with LUE and needing to take his time and be careful not to move his head excessively. Pt has a friend to assist him as needed. Suggested friend to be there for shower and may possible need a shower chair. Goals Dressing Goal Independent Toileting Goal Independent Bathing Goal Independent Shower Transfer Goal Independent Days to Meet Goals 1 Frequency of Treatment Frequency Of Treatment Once a Day Treatment Plan OT Treatment Plan ADL Training,Patient/Family Education Other Treatment Recommendations and Next shower if still here Treatment Focus Discharge Recommendations OT Discharge Recommendations Home with Assistance Home Equipment Needs long handle shoe horn issued, shower chair? Transportation Needs at Discharge Private Vehicle
--- NOTE | 2020-05-26 11:28 | PM.DS.1 ---
History of Present Illness History of Present Illness Chief complaint: INPT Narrative: Please refer to previously documented HPI and chart. Discharge Providers Provider Date of admission: 05/25/20 09:36 Discharge Date: 05/26/20 Consults: 05/12/20 10:23 Consult to Respiratory Therapy Evaluate & Treat Comment: Bryan Physician Instructions: Evaluate and treat 05/25/20 15:30 Consult to Occupational Therapy Evaluate & Treat Comment: Physician Instructions: Evaluate and treat Consult to Physical Therapy Evaluate & Treat Comment: Physician Instructions: Evaluate and Treat Discharge provider: Dr. Hernandez Summary Hospital Course Discharge Diagnosis: C5-6 and C6-7 cervical spinal stenosis, spondylosis and radiculopathy Status post C5-6 and C6-7 ACDF Hospital Course: The patient presented on May 25, 2020 with C5-7 cervical spinal stenosis, spondylosis and radiculopathy; appropriately consented and underwent a C5-7 anterior cervical diskectomy and fusion without complication then subsequently admitted to [facility] for overnight observation. The patient's pain was eventually under control with oral pain medications. The patient mobilize safely. The patient was able to void his bladder without difficulty. There were no significant complaints of radicular symptoms on discharge the patient also denied any lightheadedness, dizziness, chest pain or shortness of breath. The patient's incisions were clean, dry and intact. Status at Discharge Cognitive/behavioral status at discharge: oriented Functional status at discharge: independent ambulation Overall status at discharge: patient is back to baseline Exam Vital Signs (past 8 hours): - 05/26/20 06:00 05/26/20 08:27 Temperature 98.4 F 97.5 F L Pulse Rate 78 83 Respiratory Rate 18 18 Blood Pressure 136/75 149/93 H Pulse Oximetry 98 97 Oxygen Delivery Method Room Air Oxygen Flow Rate 0 Narrative Exam Narrative: 59-year-old evaluated lying comfortably in bed wearing soft cervical collar brace. He is a well-developed well-nourished male in no apparent distress who is alert and oriented x3 with vital signs within normal limits, wound clean dry and intact, upper extremity exam revealed that he is grossly neurovascularly intact bilaterally. [facility] Medical History (Updated 05/12/20 @ 10:00 by Sara Gómez RN) Hypertension Vertigo Surgical History (Updated 05/12/20 @ 10:04 by Sara L Gómez, RN) H/O knee surgery Status post LASIK surgery of both eyes Social History household members: none Smoking Status: Current every day smoker alcohol intake: current Discharge Assessment & Plan Assessment and Plan Assessment: 59-year-old male with C5-7 cervical spinal stenosis, spondylosis and radiculopathy doing well status post anterior cervical diskectomy and fusion Plan of Treatment: Follow Dr. Allen standard postoperative protocol and return to clinic for evaluation in 2 weeks. Discharge Plan Discharge Plan Patient Disposition: Home Discharge orders & Medications Prescriptions: New acetaminophen 500 mg capsule 500 mg PO Q6H PRN (Reason: Pain, Mild (1-3)) Qty: 60 RF: 0 docusate sodium 250 mg capsule 250 mg PO BID PRN (Reason: Constipation) Qty: 60 RF: 0 hydroxyzine pamoate 25 mg Capsule 25 mg PO Q4HR PRN (Reason: Nausea, vomitting or spasm) Qty: 30 RF: 0 oxycodone 5 mg tablet 5 mg PO Q4H PRN (Reason: Pain, Severe) Qty: 60 RF: 0 Continued lisinopril-hydrochlorothiazide [Zestoretic] 20-12.5 mg Tablet 2 tab PO DAILY RF: 0 Discontinued ibuprofen 200 mg Tablet 200 - 400 mg PO Q6H PRN (Reason: Pain) RF: 0 Follow up/Referrals: Denton Hernandez MD [Physician] - (2 weeks) Frantz Lockett MD [Primary Care Provider] - Diet/Activity/Treatments Diet: Diet as Tolerated Activity: Wear soft collar for comfort and avoid excessive bending lifting or twisting. Skin/Wound/Dressing Care Report to your healthcare provider any signs of infection, such as:: chills, fever, night sweats, increased pain, unusual drainage and unusual redness Dressing: Unless soiled or saturated remove dressing in approximately 5 days and leave Steri-Strips for 10 days. Visit Report/Discharge Packet Instructions: How to Prevent Falls, DI for Prescription Opioid Use, DI for Anterior Cervical Discectomy and Fusion, Stool Softeners, Oxycodone, Hydroxyzine Stand Alone Forms: Surgery Discharge Discharge Data Primary Care Provider: Frantz Lockett Quality VTE Deep Vein Thrombosis/Pulmonary Embolism Present on Admission: No
--- NOTE | 2020-05-26 12:02 | PC.NURSE ---
Day shift: Pt left unit via WC at approx 1200. His friend is picking him up and driving him home. Paperwork is singed and all questions answered. Pt has all personal belongings and MD scripts. Dressing remains CDI. Encouraged to sit up straight, chew food and limit distractions when eating and drinking. Soft collar in place for comfort.
--- NOTE | 2020-05-26 12:06 | OT.IP.EVAL ---
Current Diagnoses Other spondylosis with radiculopathy, cervical region (05/25/20) Spinal stenosis, cervical region (05/25/20) Surgery Performed Operation Date: 05/25/20 11:15 Actual Procedures p C5-6, C6-7 ACDF with anterior instrumentation - Denton Hernandez MD Past Medical History (Last Updated 05/12/20 @ 10:00 by Sara Gómez, RN) Hypertension Vertigo Surgical History (Last Updated 05/12/20 @ 10:04 by Sara Gómez, RN) H/O knee surgery Status post LASIK surgery of both eyes
--- NOTE | 2020-05-26 16:39 | CM.DANOTE ---
DCP ASSESSMENT: Patient is a 59 year-old male who was admitted for C5-6, C6-7 cervical discectomy and fusion. PCP Frantz Lockett. Primary payer is [employer] TRANSMISSION ASSEMBLER Student met with patient he was sitting in a chair, alert and oriented. Provided education about social works role in D/C management. Patient lives alone and is independent at baseline including driving. Patient is aware he has outpatient follow-up appointments scheduled. Therapy recommendations are home with assistance. Patient anticipates home his friend Brianne Carrie will provide transportation and stay with patient for a couple of days. PLAN: Anticipate D/C home today. CM Team to continue to follow. JUAN Benson MSW Student Discharge Planning/Care Management CM Discharge Assessment Start: 05/26/20 11:14 Freq: Status: Discharge Protocol: Document 05/26/20 11:14 [place] (Rec: 05/26/20 11:17 [place] [id number]) Discharge Planning Assessment Assigned Die Turner JUAN Miller Contact Information Butler, Brianne, Friend Advance Directives? No History Provided By Patient,Medical Record Has Patient been admitted in last 30 No days? Prior Living Arrangements Mobile home Household Members none Type of transporation used prior to Drives own vehicle admit Independent with ADL's Yes Is patient alert and oriented? Yes Caregiver for Another No Barriers to Discharge No Discharge Plan Home Transportation Arrangement Patients friend Briannekishor DobbsButler will be providing transportation for patient Referrals Initiated None needed Whiteboard Updated in Patient Room with Yes name and ext. # of Die Turner Review Status In Process Pre-Anesthesia Assessment Start: 05/12/20 09:56 Freq: Status: Complete Protocol: Document 05/12/20 09:56 [facility] (Rec: 05/12/20 10:23 [facility] [id number]) Pre-Anesthesia Assessment Preferred Name Tremaine Patient Information Reviewed Via Chart Review,Phone Assessment Assessment Completed With Patient Diagnostic Results BMP/CMP,CBC Comment Covid 05/23/20 @ Seen Specialist in Last 12 Months Yes Specialist Seen Emergency,Orthopedist Comment Lt Frantz Lockett - KIZ[facility] Primary Language Belarusian Preferred Language Belarusian Underbaster Required No Height 187.96 cm Weight 98.883 kg Body Mass Index (BMI) 28.0 Hearing Ability Normal Visual Impairment Partially Limited Visual Assist Glasses Dentition Type Teeth, Natural Present,Teeth, Broken Barriers to Learning None Other Aids No Hx Anesthesia Reactions No Hx Family Anesthesia Reaction No Hx Malignant Hyperthermia No Hx Blood Transfusions No Hx Blood Transfusion Reaction No Anesthesia Review Requested No Wire Lather No alcohol intake current alcohol intake frequency a few times a month Smoking Status Current every day smoker Substance Use Type marijuana Comment Vapes Pain Present Denied Pain Musculoskeletal Symptoms Muscle Weakness,Neck Pain, Numbness History of Falling (Recent or History of No ) Patient is completely paralyzed or No completely immobile Ambulatory Aid None/bed rest/nurse assist Gait/Transferring Normal/bedrest/immobile Mental Status Oriented to own ability Is patient on oxygen? No Does patient have WAGNER/SOB No Hx Sleep Apnea No Will Bring CPAP/BIPAP DOS No Currently Taking a Beta Bakari No Can You Climb a Flight of Stairs Without No SOB Hx Chest Pain No Hx SOB No Hx Syncope or Dizziness Yes Anti-Coagulant Therapy No Has a Aeronautical Research Engineer No Cardiac Testing No Hx Pacemaker/ICD No Pacemaker Rep Required? No Cardiac Clearance Received Not Applicable Diet Type At Home Regular dysphagia No Urinary Catheter Present No Hx Urinary Self Catheterization No Diabetes No Hx Drug Resistant Organism No Presence of External or Internal Medical Yes: Pins in right knee Devices Have you had any close contact with No someone diagnosed with COVID-19? Are you experiencing any of these No symptoms symptoms? Evaluation/Screening for possible COVID- Yes 19 infection completed? Comment Only L weakness r/t diagnosis Marital Status Lives With none Prior Living Arrangements Mobile home Number of Floors (Floors) One Floor Number of Stairs To Enter/Railing? Three steps Support System Friend(s) Does the Patient Have Assistance After Yes Surgery Patient Discharge Plan Description Home Health Feels Safe in Current Environment Yes Been Physically Hurt or Threatened By a No Person in Current Environment Do you have thoughts of harming yourself None or others? Are you currently considering suicide? No Do you have a plan to hurt yourself or No Plan others? Do You Have Any Spiritual Beliefs That No May Affect Your HC Choices? Do You Have Any Cultural Practices That No May Affect Your HC Choices? Who Can We Speak to About Patient's Care Family & Friends Identifying Code for Release of Patient Declined Information Health Care Proxy/Next of Kin Aristeo Urbina Fritzchacekimberly Health Care Proxy Emergency Contact Name Aristeo Rodriguez Emergency Contact Advance Directives? No Power of Mortgage Closer No PAC Instructions Assistance for 24 hours post- op,Durable medical equipment, Nasal antibiotic,No ETOH/ petroleum product on skin DOS, NPO,Post-op transportation,Pre -op antibiotic,Pre-surgical wash,Sensory aids,Sturdy shoes /comfortable clothes,Do not bring valuables and remove jewelry
== END 2020-05-26 12:04 | disposition home or self-care (01) | DRG 473 ==
PROVIDERS: Admitting Provider Orthopaedic Surgery Orthopaedic Surgery of the Spine; PCP Family Medicine; Referring Provider Orthopaedic Surgery Orthopaedic Surgery of the Spine; Visit Provider Orthopaedic Surgery Orthopaedic Surgery of the Spine
PROC: 0RG20A0 Fusion of 2 or more Cervical Vertebral Joints with Interbody Fusion Device, Anterior Approach, Anterior Column, Open Approach (ICD-10-PCS; principal; 2020-05-25 11:15)
DX: M48.02 Spinal stenosis, cervical region (principal); M47.22 Other spondylosis with radiculopathy, cervical region; I10 Essential (primary) hypertension
CPT/HCPCS: 72040; 76000; 97161; 97165; 99406; C1776; J0690; J1100; J1170; J2405; J2704; J3010; J3410